=== PATIENT | female | born 1960 | race Caucasian/White ===

== ENCOUNTER 2020-05-25 16:29 | Outpatient (REF) | payer OTHER, SELFPAY ==
[2020-05-25 17:38] LABS: Alanine Aminotransferase 20 U/L (0-31); Albumin Level 4.4 g/dL (3.5-5.0); Alkaline Phosphatase 82 U/L (39-117); Aspartate Amino Transferase 20 U/L (5-31); Bilirubin Direct 0.2 mg/dL (0.0-0.5); Bilirubin Total 0.6 mg/dL (0.0-1.0); Total Protein 7.1 g/dL (6.5-8.0)
== END 2020-05-25 16:30 | disposition home or self-care (01) ==
LOC: HO.LAB 16:29
PROVIDERS: PCP Internal Medicine; Visit Provider Podiatrist
DX: B35.1 Tinea unguium (principal)
CPT/HCPCS: 36415; 80076

== ENCOUNTER 2022-05-14 10:33 | Outpatient (REF) | payer OTHER, SELFPAY ==
--- NOTE | ~2022-05-14 | XR_ITS ---
EXAMINATION: XR SCAPULA, RIGHT XR SHOULDER, RIGHT CLINICAL INFORMATION: Pain COMPARISON: None TECHNIQUE: 2 views right scapula and 3 views right shoulder. FINDINGS: Right Scapula: There is no visible acute fracture, dislocation or subluxation seen. No bony erosive changes or soft tissue abnormality. Right Shoulder: The glenohumeral and AC joint space is maintained normal. No visible fracture or bony abnormality. The soft tissues are normal. Incidental finding of patchy opacity in the right upper lobe. XR/XR scapula RT IMPRESSION: 1. Unremarkable right scapula exam. 2. Unremarkable right shoulder exam. 3. Incidental finding of patchy opacity right upper lobe, question infiltrates or scarring.
--- NOTE | ~2022-05-14 | XR_ITS ---
EXAMINATION: XR SCAPULA, RIGHT XR SHOULDER, RIGHT CLINICAL INFORMATION: Pain COMPARISON: None TECHNIQUE: 2 views right scapula and 3 views right shoulder. FINDINGS: Right Scapula: There is no visible acute fracture, dislocation or subluxation seen. No bony erosive changes or soft tissue abnormality. Right Shoulder: The glenohumeral and AC joint space is maintained normal. No visible fracture or bony abnormality. The soft tissues are normal. Incidental finding of patchy opacity in the right upper lobe. XR/XR shoulder RT min 2V IMPRESSION: 1. Unremarkable right scapula exam. 2. Unremarkable right shoulder exam. 3. Incidental finding of patchy opacity right upper lobe, question infiltrates or scarring.
[2022-05-14 10:47] LABS: MANUAL DIFF FLAG NO
[2022-05-14 12:00] LABS: Basophils Percent Auto 0.5 % (0-2); Eosinophils Absolute Auto 0.3 X10*3/uL (0.0-0.4); Eosinophils Percent Auto 5.6 % (0-4); Hematocrit 40.6 % (37.0-47.0); Hemoglobin 13.2 g/dl (12.0-16.0); Imm Gran Abs Auto 0.01 X10*3/uL (0.00-0.03); Imm Gran Pct Auto 0.2 % (0.0-0.4); Lymphocytes Absolute Auto 2.1 X10*3/uL (1.2-4.9); Lymphocytes Percent Auto 36.5 % (20-40); Mean Corpuscular HGB Conc 32.5 g/dl (31.0-35.0); Mean Corpuscular Hemoglobin 30.9 pg (27.0-33.0); Mean Corpuscular Volume 95.1 fL (80.0-98.0); Mean Platelet Volume 11.3 fL (9.4-12.3); Monocytes Absolute Auto 0.6 X10*3/uL (0.1-1.2); Monocytes Percent Auto 11.1 % (2-11); Neutrophils Absolute Auto 2.6 x10*3/uL (2.0-8.3); Neutrophils Percent Auto 46.1 % (45-73); Platelet Count 261 X10*3/uL (160-400); Red Blood Count 4.27 X10*6/uL (4.20-5.50); White Blood Count 5.7 X10*3/uL (4.8-10.8)
[2022-05-14 12:34] LABS: Alanine Aminotransferase 14 U/L (0-31); Anion Gap 15 (12-20); Aspartate Amino Transferase 16 U/L (5-31); Blood Urea Nitrogen 11 mg/dL (9-16); Carbon Dioxide 27 mmol/L (22-29); Chloride 107 mmol/L (96-108); Cholesterol 189 mg/dL; Estimated Glomerular Filt Rate > 60; HDL Cholesterol 59 mg/dL; LDL Cholesterol Calculated 108 mg/dl; Potassium 4.1 mmol/L (3.3-5.1); Sodium 145 mmol/L (135-145); Triglycerides 110 mg/dL
== END 2022-05-14 10:34 | disposition home or self-care (01) ==
LOC: HO.LAB 10:33
PROVIDERS: PCP Internal Medicine; Visit Provider Internal Medicine
DX: Z00.00 Encounter for general adult medical examination without abnormal findings (principal); Z13.220 Encounter for screening for lipoid disorders; C50.919 Malignant neoplasm of unspecified site of unspecified female breast; M25.511 Pain in right shoulder; M89.8X1 Other specified disorders of bone, shoulder
CPT/HCPCS: 36415; 73010; 73030; 80051; 80061; 82310; 82565; 84450; 84460; 84520; 85025

== ENCOUNTER 2022-06-06 15:52 | Outpatient (REF) | payer OTHER, SELFPAY ==
--- NOTE | ~2022-06-06 | XR_ITS ---
EXAMINATION: XR CHEST CLINICAL INFORMATION: Abnormal lung findings. COMPARISON: None TECHNIQUE: 2 views of the chest were obtained. FINDINGS: Mild biapical pleural thickening and scarring is seen. Linear markings are seen in the right upper lobe. There are no pleural effusions. The heart and mediastinal structures are unremarkable. XR/XR chest 2V IMPRESSION: Chronic appearing changes in the upper lobes bilaterally. No acute cardiopulmonary process.
== END 2022-06-06 15:53 | disposition home or self-care (01) ==
LOC: HO.XRAY 15:52
PROVIDERS: PCP Internal Medicine; Visit Provider Internal Medicine
DX: R91.8 Other nonspecific abnormal finding of lung field (principal)
CPT/HCPCS: 71046

== ENCOUNTER 2022-07-06 11:10 | Emergency (ER) | payer OTHER, SELFPAY ==
--- NOTE | ~2022-07-06 | XR_ITS ---
EXAMINATION: XR KNEE, LEFT CLINICAL INFORMATION: Pain COMPARISON: Previous x-ray February 2016 TECHNIQUE: Four views of the left knee. FINDINGS: There is ORIF of old healed patellar fracture with 2 K wires or pins and cerclage wire. Hardware appears intact and unchanged from previous exam. No acute fracture or dislocation. Mild degenerative changes at the patellofemoral and medial femoral tibial joints. No significant joint effusion. XR/XR knee LT 4V IMPRESSION: ORIF of old healed patella fracture. Mild degenerative changes.
[2022-07-06 11:15] VITALS: BP 128/66; PULSE 104; RESP 14; TEMP 36.6; O2SAT 99; BMI 21.2
--- NOTE | 2022-07-06 11:15 | ED_ITS ---
HPI - Extremity Problem General Chief complaint: Extremity Injury, Lower <JOSE Tobin Last Filed: 07/06/22 11:17> Stated complaint: l knee pain <JOSE Tobin Last Filed: 07/06/22 11:17> Time Seen by Provider: 07/06/22 11:17 <JOSE Tobin Last Filed: 07/06/22 11:17> History of Present Illness HPI Narrative: Patient with 2 complaints First complaint is left knee pain worsening for several weeks, there is no new injury but she has a history of surgically repaired patellar fracture of the left knee, denies any redness, she is able to walk on it but with a limp Second complaint is she thinks she may have had a fever several days ago and has had body aches and mild fatigue since, there is no cough no runny nose no sore throat no shortness of breath no chest pain no abdominal pain no nausea vomiting or diarrhea no dysuria <JOSE Mora Last Filed: 07/14/22 10:47> Related Data Home medications: Previous Rx's Medication Instructions Recorded ibuprofen 400 mg tablet 400 mg PO Q6H PRN pain #20 tabs 07/06/22 <JOSE Tobin Last Filed: 07/06/22 11:17> Allergies/Adverse reactions: Allergies Allergy/AdvReac Type Severity Reaction Status Date / Time No Known Allergies Allergy Unverified 12/23/19 16:59 <JOSE Tobin Last Filed: 07/06/22 11:17> [facility] Past Medical History Source: nursing notes reviewed <JOSE Mora - Last Filed: 07/14/22 10:47> Social History Social History: Social History Advance Directives: No Advance Directives Information Provided: Yes <JOSE Tobin Last Filed: 07/06/22 11:17> Physical Exam Vital Signs: Vital Signs: Last Vital Signs Temp 98.1 F 07/06/22 12:41 Pulse 86 07/06/22 12:41 Resp 18 07/06/22 12:41 BP 116/67 07/06/22 12:41 Pulse Ox 98 07/06/22 12:41 O2 Del Method Room Air 07/06/22 12:41 BMI result Body Mass Index 21.2 <JOSE Tobin Last Filed: 07/06/22 11:17> Vital Signs: Last Vital Signs Temp 98.1 F 07/06/22 12:41 Pulse 86 07/06/22 12:41 Resp 18 07/06/22 12:41 BP 116/67 07/06/22 12:41 Pulse Ox 98 07/06/22 12:41 O2 Del Method Room Air 07/06/22 12:41 BMI result Body Mass Index 21.2 <JOSE Mora - Last Filed: 07/14/22 10:47> General appearance no acute distress comfortable cooperative Eyes no redness or discharge The pharynx is clear without redness swelling or exudate, voice is normal, membranes moist Neck is supple Chest is clear to auscultation bilateral no respiratory distress Breath sounds are full and symmetrical with no adventitious sounds Heart no murmur Abdomen soft nontender Extremities the left knee is normal in appearance no obvious swelling no obvious effusion, there is tenderness over the anterior knee there is no redness no warmth, it extends easily to 180 and flexes past 90, she can bear weight on it but with a limp, neurovascular intact distal There is no calf tenderness no posterior knee tender Other extremities normal Skin no rashes <JOSE Mora - Last Filed: 07/14/22 10:47> Course Course Course Narrative: This is an RME: Additional HPI, ROS, PE not included below will be deferred to primary provider. 61 year old female presents with left-sided knee pain x3 did, fevers x5 days. She reports body aches and pains, fatigue and malaise. She had knee surgery in [address] Crouch and she is concerned her knee may be infected. Patient walked into triage with a limp. Taking ibuprofen with little to no relief Physical exam patient ambulatory. Neurovascular status intact Plan imaging viral testing <JOSE Tobin - Last Filed: 07/06/22 11:17> This is an RME: Additional HPI, ROS, PE not included below will be deferred to primary provider. 61 year old female presents with left-sided knee pain x3 did, fevers x5 days. She reports body aches and pains, fatigue and malaise. She had knee surgery in [address] Crouch and she is concerned her knee may be infected. Patient walked into triage with a limp. Taking ibuprofen with little to no relief Physical exam patient ambulatory. Neurovascular status intact Plan imaging viral testing Patient with surgically repaired patella fracture from injury 7 years ago complains of left knee pain over the last several days with no new injury She also complains of possibly having a fever several days ago and feeling some body aches and fatigue, denies cough denies shortness of breath denies chest pain denies nausea vomiting or diarrhea Left knee x-ray showed hardware in place for the old patella fracture as well as mild degenerative changes, no acute fractures She can ambulate well without assistance and will follow with orthopedist COVID and flu tests were negative, patient is well-appearing and may have had of the recent illness with the fever body aches and fatigue but no sign of any emergent or dangerous condition now <JOSE Mora Last Filed: 07/14/22 10:47> Medical Decision Making Lab Data Labs: Lab Results 07/06/22 07/06/22 Range/Units 11:21 11:21 COVID-19 (YOVANY) Negative (Negative) COVID-19 Clin Com See Note Influenza Type A (MAGALI) Negative (Negative) Influenza Type B (MAGALI) Negative (Negative) Influenza A & B Note See Note <JOSE Tobin Last Filed: 07/06/22 11:17> Lab Results 07/06/22 07/06/22 Range/Units 11:21 11:21 COVID-19 (YOVANY) Negative (Negative) COVID-19 Clin Com See Note Influenza Type A (MAGALI) Negative (Negative) Influenza Type B (MAGALI) Negative (Negative) Influenza A & B Note See Note <JOSE Mora Last Filed: 07/14/22 10:47> Discharge Plan Discharge Clinical Impression: Arthralgia of knee, left <JOSE Tobin Last Filed: 07/06/22 11:17> Patient Disposition: Home, Self-Care <JOSE Tobin Last Filed: 07/06/22 11:17> Additional Instructions: X-ray of the left knee showed that the hardware is intact and did not show any new injury but it did show some evidence of arthritis COVID and flu tests were negative Follow with orthopedist for further evaluation of her left knee pain You can use ice, Tylenol and or Motrin as needed for pain Return to ER any time any worse conditions or concerns If back pain and body aches continue follow with primary doctor for further evaluation <JOSE Tobin - Last Filed: 07/06/22 11:17> Prescriptions: New ibuprofen 400 mg tablet 400 mg PO Q6H PRN (Reason: pain) Qty: 20 0RF <JOSE Tobin - Last Filed: 07/06/22 11:17> Referrals: Boogie Pelaez MD [Physician] - (SP patella fracture ORIF, left knee pain) <JOSE Tobin - Last Filed: 07/06/22 11:17> Interventions: ED Discharge Assessment Last Done: 07/06/22 12:50 <JOSE Tobin - Last Filed: 07/06/22 11:17> Discharge Date/Time: 07/06/22 12:51 <JOSE Tobin - Last Filed: 07/06/22 11:17>
[2022-07-06 11:54] LABS: COVID-19 Test Negative (Negative); IDNOW Serial# 55D5AD1C; IDNOW Serial# 6674DD1D; Influenza A Negative (Negative); Influenza B2 Negative (Negative)
[2022-07-06 12:41] VITALS: BP 116/67; PULSE 86; RESP 18; TEMP 36.7; O2SAT 98
== END 2022-07-06 12:51 | disposition home or self-care (01) ==
PROVIDERS: Physician Assistant; Emergency Provider Emergency Medicine; PCP Internal Medicine
DX: M25.562 Pain in left knee (principal); M79.10 Myalgia, unspecified site; Z20.822 Contact with and (suspected) exposure to COVID-19
CPT/HCPCS: 73564; 87502; 87635; 99283

== ENCOUNTER 2023-08-20 13:33 | Outpatient (REF) | payer OTHER, SELFPAY ==
--- NOTE | ~2023-08-20 | XR_ITS ---
EXAMINATION: XR HAND, RIGHT CLINICAL INFORMATION: Right hand pain. COMPARISON: None available. TECHNIQUE: PA, lateral, and oblique views of the right hand. FINDINGS: The bones and soft tissues are normal. No fracture. Alignment is anatomic. Joint spaces are maintained. No erosions or soft tissue calcifications. XR/XR hand RT min 3V IMPRESSION: Normal right hand.
[2023-08-20 15:52] LABS: Rheumatoid Factor < 13.0 IU/mL (<15.0)
== END 2023-08-20 13:34 | disposition home or self-care (01) ==
LOC: HO.XRAY 13:33
PROVIDERS: PCP Internal Medicine; Visit Provider Internal Medicine
DX: M79.641 Pain in right hand (principal)
CPT/HCPCS: 36415; 73130; 86431